=== PATIENT | male | born 1945 | race Caucasian/White ===

== ENCOUNTER 2017-06-25 02:23 | Emergency (ER) | payer MEDICARE ==
[~2017-06-25] VITALS: Ht 182.9 cm; Wt 84.2 kg
[~2017-06-25 02:23] MED LIST: FAMO20 PO; MELA10TA PO; MULT1TAB PO; NEXI20CA PO; VITA80005 PO; VITATAB25 PO
[2017-06-25 02:28] VITALS: BP 179/87; PULSE 77; RESP 18; TEMP 98.2; O2SAT 98
[2017-06-25 05:39] VITALS: BP 179/87; PULSE 77; RESP 18; TEMP 98.2
[2017-06-25] MEDS ORDERED: ESOM0.1C PO (05:56)
[2017-06-25] MEDS ORDERED: CENTCHW4 CHEW (05:57)
[2017-06-25 07:06] VITALS: BP 145/78; PULSE 93; RESP 18; TEMP 97.7; O2SAT 97
[2017-06-25] MEDS ORDERED: OXYC-392 PO (07:14)
--- NOTE | 2017-06-25 07:14 | PD ---
HPI Chief Complaint: Oral / Dental Pain or Problem Time Seen by Provider: 06:55 Travel History International Travel<30 days: No Contact w/Intl Traveler<30days: No Traveled to known affect area: No History of Present Illness HPI 71-year-old male complains of left dentalgia. He reports a dental cap came loose and was removed from the post after flossing about 1 day ago. He also complains of pain in the margin of the tongue abutting the implant which is worse with swallowing. Finally the patient complains of using a fluoride tray and subsequently developing pain in the left neck and buccal mucosa leading to odynophagia. He notes that over the past couple hours the odynophagia and left neck pain is nearly resolved. No dyspnea. PFSH Past Medical History Cancer: Yes (PROSTATE) Cardiovascular Problems: No Diabetes: No Diminished Hearing: No Endocrine: No Gastrointestinal Disorders: Yes (WATKINS'S ESOPHAGUS, ACID REFLUX) Genitourinary: No Hepatitis: Yes (CIRRHOSIS - FOLLOWED BY [facility] [place]) Hiatal Hernia: No Hypertension: Yes (HX. OF HTN, NOW RESOLVED) Immune Disorder: No Musculoskeletal: Yes (ARTHRITIS MAITE. HANDS AND LT. SHOULDER) Neurologic: No Psychiatric: No Reproductive: No Respiratory: No Thyroid Disease: No Past Surgical History Abdominal Surgery: Yes (HERNIA REPAIR X 2) AICD: No Cardiac Surgery: No Ear Surgery: No Endocrine Surgery: No Eye Surgery: No Genitourinary Surgery: Yes (1997 PROSTATECTOMY, SPERMATOCELE 1999) Gynecologic Surgery: No Joint Replacement: No Oral Surgery: Yes (TONSILLECTOMY) Pacemaker: No Prostatectomy: Yes Thoracic Surgery: No Other Surgery: Yes (HERNIA REPAIR) Social History Alcohol Use: No (quit 6 years) Tobacco Use: No Substance Use: No Allergies-Medications (Allergen,Severity, Reaction): Coded Allergies: penicillin G (Verified Allergy, Severe, RASH/ SWELLING, 06/25/17) Reported Meds & Prescriptions Reported Meds & Active Scripts Active Oxycodone (Oxycodone HCl) 5 Mg Tab 1-2 Tab PO Q8H PRN Reported Centrum (Multiple Vitamins W/ Minerals) 1 Chew 1 Tab CHEW DAILY Esomeprazole DR 20 Mg Capdr 20 Mg PO DAILY Vitamin A 8,000 Unit Cap 10,000 Unit PO DAILY Review of Systems Except as stated in HPI: all other systems reviewed are Neg General / Constitutional: No: Fever Physical Exam Narrative GENERAL: 71-year-old male well-nourished well-developed, the patient is tolerating his own secretions Vital Signs Date Time Temp Pulse Resp B/P (MAP) Pulse Ox O2 Delivery O2 Flow Rate FiO2 06/25/17 07:06 97.7 93 18 145/78 (100) 97 Room Air 06/25/17 05:48 18 06/25/17 05:39 98.2 77 18 179/87 (117) 06/25/17 02:28 98.2 77 18 179/87 (117) 98 SKIN: Warm and dry. HEAD: Atraumatic. Normocephalic. EYES: Pupils equal and round. No scleral icterus. No injection or drainage. ENT: No nasal bleeding or discharge. Mucous membranes pink and moist. Tooth 18 demonstrates a dental post with no. The adjacent lingual margin is slightly erythematous. The posterior oropharynx is widely patent. NECK: Trachea midline. No JVD. There is no appreciable swelling induration and erythema tenderness or warmth about the left neck. CARDIOVASCULAR: Regular rate and rhythm. RESPIRATORY: No accessory muscle use. Clear to auscultation. Breath sounds equal bilaterally. GASTROINTESTINAL: Abdomen soft, non-tender, nondistended. Hepatic and splenic margins not palpable. MUSCULOSKELETAL: Extremities without clubbing, cyanosis, or edema. No obvious deformities. NEUROLOGICAL: Awake and alert. No obvious cranial nerve deficits. Motor grossly within normal limits. Five out of 5 muscle strength in the arms and legs. Normal speech. PSYCHIATRIC: Appropriate mood and affect; insight and judgment normal. Data Data Last Documented VS Vital Signs Date Time Temp Pulse Resp B/P (MAP) Pulse Ox O2 Delivery O2 Flow Rate FiO2 06/25/17 07:06 97.7 93 18 145/78 (100) 97 Room Air Orders Orders Lidocaine 2% Viscous (Xylocaine 2% Visco (06/25/17 07:15) Oxycodone (Roxicodone) (06/25/17 07:15) Ed Discharge Order (06/25/17 07:07) [facility] Medical Decision Making Medical Screen Exam Complete: Yes Emergency Medical Condition: Yes Differential Diagnosis Shukla, fluoride exposure, chronic pain Narrative Course Patient has mechanical pain from dental implant failure. Will control pain. The odynophagia and neck pain has nearly completely resolved. Diagnosis Primary Impression: Pain, dental Additional Impressions: Odynophagia Mechanical failure of dental implant Referrals: Dentist 1 day Med/Other Pt SpecificInfo: Prescription(s) given Scripts Oxycodone (Oxycodone) 5 Mg Tab 1-2 TAB PO Q8H Y for PAIN SCALE 6 TO 10, #20 TAB 0 Refills Prov: Olvin Lino MD 06/25/17 Disposition: 01 DISCHARGE HOME Condition: Stable Olvin Lino MD Jun 25, 2017 07:14
[2017-06-25] MEDS ORDERED: LIDOCAINE VISCOUS 2% SOLN 15 ML UDC PO ONE (07:15)
== END 2017-06-25 07:38 | disposition home or self-care (01) ==
LOC: PHED 02:23
DX: R13.10 Dysphagia, unspecified (principal); M27.63 Post-osseointegration mechanical failure of dental implant; M54.2 Cervicalgia; K21.9 Gastro-esophageal reflux disease without esophagitis; I10 Essential (primary) hypertension; M19.042 Primary osteoarthritis, left hand; M19.041 Primary osteoarthritis, right hand; M19.012 Primary osteoarthritis, left shoulder; Z86.19 Personal history of other infectious and parasitic diseases
CPT/HCPCS: 99283